=== PATIENT | male | born 1950 | race Caucasian/White ===

== ENCOUNTER 2023-02-08 07:33 | Inpatient (IN) ==
[~2023-02-08 07:33] MED LIST: Buffered Lidocaine 1% SYRIN 1 ml INTRADERM ONE; Lidocaine 2% PF 5 ML VIAL ONE; NS 0.9% 1000 ml BAG 1,000 ML IV SCH; Propofol 10 MG/ML 20 ML BTL ONE; Rocuronium 50 mg VIAL 10 mg/ml 5 ml VIAL (50 mg) ONE
[2023-02-08] MEDS ORDERED: Chlorhexidine MOUTHWASH 0.12% 15 ML UDC ONE (07:51)
[2023-02-08] MEDS ORDERED: Ondansetron 4 mg VIAL 2 MG/ML 2 ml VIAL ONE (08:11)
[2023-02-08] MEDS ORDERED: Dexamethasone IV 4 MG/ML VIAL 1 ml VIAL ONE (08:11)
[2023-02-08 08:12] LABS: Rapid COVID-19 Molecular Undetected (Undetected)
[2023-02-08] MEDS ORDERED: fentaNYL 100 mcg/2 ml 50 MCG/ML VIAL ONE (08:13)
[2023-02-08] MEDS ORDERED: fentaNYL 100 mcg/2 ml 50 MCG/ML VIAL IV PRN (08:13)
[2023-02-08] MEDS ORDERED: Morphine 4 MG/ML VIAL (1 ml) IV PRN (08:13)
[2023-02-08] MEDS ORDERED: Prochlorperazine 5 mg/ml 2 ml VIAL (10 mg) IV PRN ×2 (08:13→12:16)
[2023-02-08] MEDS ORDERED: Naloxone 0.4 mg VIAL 0.4 mg/ml 1 ml VIAL IV PRN (08:13)
[2023-02-08] MEDS ORDERED: ceFAZolin 2 GM in NS PREMIX 2 GM/100 ML BAG IVPB ONE (08:29)
[2023-02-08] MEDS ORDERED: Lidocaine 1% w EPI 1:100,000 MDV 20 ML VIAL ONE (10:19)
[2023-02-08] MEDS ORDERED: Thrombin 5,000 UNITS 1 APPLIC KIT - topical use - TOPICAL ONE (10:20)
[2023-02-08] MEDS ORDERED: ceFAZolin VIAL VIAL ONE (10:20)
[2023-02-08] MEDS ORDERED: Gelfoam Sponge SIZE 100 SPONGE ONE (10:20)
[2023-02-08] MEDS ORDERED: Midazolam 2 mg/2 ml VIAL 1 mg/ml 2 ml VIAL (2 mg) ONE (10:38)
[2023-02-08] MEDS ORDERED: Acetaminophen IV 1 GM/100ML 1,000 MG/100 ML BAG IV ONE (11:15)
[2023-02-08] MEDS ORDERED: Rocuronium 50 mg VIAL 10 mg/ml 5 ml VIAL (50 mg) ONE (11:24)
[2023-02-08] MEDS ORDERED: Calcium Carb (TUMS) 500 mg CHEW TAB PO PRN (12:09)
[2023-02-08] MEDS ORDERED: Senna TAB 8.6 mg TAB PO PRN (12:09)
[2023-02-08] MEDS ORDERED: Morphine 2 MG/ML SYRINGE IV PRN (12:09)
[2023-02-08] MEDS ORDERED: Lactated Ringers 1000 ml BAG 1,000 ML IV SCH (13:00)
[2023-02-08] MEDS ORDERED: Insulin GLARGINE 100 un/ml 10 ml VIAL SUBCUT SCH (21:00)
[2023-02-08] MEDS ORDERED: Benzocaine (plain) Lozenge 15 MG PO PRN (22:43)
[2023-02-08] MEDS: Timolol 0.5% OPTH.SOL BTL LEFT EYE SCH (22:45)
[2023-02-09] MEDS: Timolol 0.5% OPTH.SOL BTL LEFT EYE SCH ×2 (08:15→22:34)
[2023-02-09] MEDS: Latanoprost 0.005% 2.5 ml BTL LEFT EYE SCH (08:16)
[2023-02-09] MEDS: NF: Brinzolamid/Brimonidin OPH(NF) 1 DROP BTL LEFT EYE SCH (08:18)
[2023-02-09] MEDS ORDERED: Gadoteridol (CONTRAST) 279.3 MG/ML 10 ML IV ONE (20:31)
[2023-02-09] MEDS: HYDROcodone/ACETAMIN 5/325 mg TAB PO PRN (22:33)
[2023-02-10] MEDS ORDERED: Dexamethasone IV 4 MG/ML VIAL 1 ml VIAL IV SLOW PU ONE (07:12)
[2023-02-10] MEDS ORDERED: Propofol 10 MG/ML 20 ML BTL ONE (08:11)
[2023-02-10] MEDS ORDERED: Lidocaine 2% PF 5 ML VIAL ONE (08:11)
[2023-02-10] MEDS ORDERED: Rocuronium 50 mg VIAL 10 mg/ml 5 ml VIAL (50 mg) ONE ×2 (08:11→09:43)
[2023-02-10] MEDS ORDERED: Thrombin 5,000 UNITS 1 APPLIC KIT - topical use - TOPICAL ONE (08:31)
[2023-02-10] MEDS ORDERED: Lidocaine 1% w EPI 1:200,000 SDV 30 ML VIAL ONE (08:31)
[2023-02-10] MEDS ORDERED: Gelfoam Sponge SIZE 100 SPONGE ONE (08:32)
[2023-02-10] MEDS ORDERED: fentaNYL 250 mcg/5 ml 50 MCG/ML 5 ml VIAL (250 MCG) ONE (08:51)
[2023-02-10] MEDS ORDERED: Midazolam 10 mg/10 ml VIAL 1 mg/ml 10 ml VIAL (10 mg) ONE (08:51)
[2023-02-10] MEDS ORDERED: ceFAZolin VIAL VIAL ONE (09:03)
[2023-02-10] MEDS ORDERED: ceFAZolin 2 GM in NS PREMIX 2 GM/100 ML BAG IVPB ONE (09:12)
[2023-02-10] MEDS ORDERED: Dexamethasone IV 4 MG/ML VIAL 1 ml VIAL ONE (09:45)
[2023-02-10] MEDS ORDERED: Acetaminophen IV 1 GM/100ML 1,000 MG/100 ML BAG IV ONE (09:56)
[2023-02-10] MEDS ORDERED: Ondansetron 4 mg VIAL 2 MG/ML 2 ml VIAL ONE (09:57)
[2023-02-10] MEDS ORDERED: fentaNYL 100 mcg/2 ml 50 MCG/ML VIAL ONE (12:01)
[2023-02-10] MEDS ORDERED: Ondansetron 4 mg VIAL 2 MG/ML 2 ml VIAL IV PRN (12:45)
[2023-02-10] MEDS ORDERED: fentaNYL 100 mcg/2 ml 50 MCG/ML VIAL IV PRN (12:45)
[2023-02-10] MEDS ORDERED: Naloxone 0.4 mg VIAL 0.4 mg/ml 1 ml VIAL IV PRN (12:45)
[2023-02-10] MEDS: NF: Brinzolamid/Brimonidin OPH(NF) 1 DROP BTL LEFT EYE SCH (14:35)
[2023-02-10] MEDS: Timolol 0.5% OPTH.SOL BTL LEFT EYE SCH ×2 (16:02→20:19)
[2023-02-10] MEDS: Latanoprost 0.005% 2.5 ml BTL LEFT EYE SCH (16:08)
[2023-02-10] MEDS: HYDROcodone/ACETAMIN 5/325 mg TAB PO PRN ×2 (16:08→20:12)
[2023-02-10] MEDS: Dexamethasone IV 4 MG/ML VIAL 1 ml VIAL IV SLOW PU SCH ×2 (16:10→20:13)
[2023-02-11] MEDS: Dexamethasone IV 4 MG/ML VIAL 1 ml VIAL IV SLOW PU SCH ×4 (03:44→21:36)
[2023-02-11] MEDS: Timolol 0.5% OPTH.SOL BTL LEFT EYE SCH ×2 (08:15→21:45)
[2023-02-11] MEDS: NF: Brinzolamid/Brimonidin OPH(NF) 1 DROP BTL LEFT EYE SCH (08:16)
[2023-02-11] MEDS: Latanoprost 0.005% 2.5 ml BTL LEFT EYE SCH (08:18)
[2023-02-11] MEDS: HYDROcodone/ACETAMIN 5/325 mg TAB PO PRN ×2 (08:23→21:44)
[2023-02-11] MEDS: Polyethylene Glycol 3350 17 GM PACKET PO SCH (10:38)
[2023-02-12] MEDS: Dexamethasone IV 4 MG/ML VIAL 1 ml VIAL IV SLOW PU SCH ×4 (02:06→15:53)
[2023-02-12 06:04] LABS: ABS Lymphocytes 0.7 10^3/uL (1.0-4.8); ABS Monocytes 0.3 10^3/uL (0.0-1.1); ABS Neutrophils 11.7 10^3/uL (1.5-7.6); ABS Nucleated RBC 0.01 10^3/ul; Hematocrit 31.5 % (38-53); Hemoglobin 10.9 g/dL (13.2-16.3); Lymphocyte % 5.5 %; Mean Corpuscular Hgb Conc 34.7 g/dL (31-36); Mean Corpuscular Volume 89.4 fL (80-97); Mean Platelet Volume 6.9 fL (7.5-11.2); Nucleated Red Blood Cells % 0.1 /100 WBC (0.0-0.4); Platelet Count 312 10^3/uL (150-450); Red Blood Count 3.53 10^6/uL (4.06-5.63); White Blood Count 12.6 10^3/uL (3.6-10.2)
[2023-02-12 06:14] LABS: INR 1.12 (0.88-1.18)
[2023-02-12 06:23] LABS: Albumin 3.4 g/dL (3.2-5.2); Albumin/Globulin Ratio 1.1 (1-3); Calcium 8.1 mg/dL (8.6-10.3); Creatinine, Serum 0.86 mg/dL (0.67-1.17); Potassium 4.3 mmol/L (3.5-5.0); Total Bilirubin 0.4 mg/dL (0.2-1.0); Total Protein 6.4 g/dL (6.4-8.9); eGFR CKD-EPI 91.4 (>60)
[2023-02-12 06:33] LABS: PSA Screen Ultra Sensitive 4.049 ng/mL (0-4.000)
[2023-02-12 06:38] LABS: Carcinoembryonic Antigen 2.7 ng/mL (0.1-5.0)
[2023-02-12] MEDS: Polyethylene Glycol 3350 17 GM PACKET PO SCH (08:46)
[2023-02-12] MEDS: HYDROcodone/ACETAMIN 5/325 mg TAB PO PRN ×2 (08:56→15:53)
[2023-02-12] MEDS: Timolol 0.5% OPTH.SOL BTL LEFT EYE SCH ×2 (11:06→21:37)
[2023-02-12] MEDS: NF: Brinzolamid/Brimonidin OPH(NF) 1 DROP BTL LEFT EYE SCH (11:08)
[2023-02-12] MEDS: Latanoprost 0.005% 2.5 ml BTL LEFT EYE SCH (11:08)
[2023-02-12] MEDS: Enoxaparin 40 MG/0.4 ML SYR SUBCUT SCH (11:08)
[2023-02-12] MEDS: Insulin GLARGINE 100 un/ml 10 ml VIAL SUBCUT SCH (21:36)
[2023-02-13] MEDS: Enoxaparin 40 MG/0.4 ML SYR SUBCUT SCH (08:09)
[2023-02-13] MEDS: Polyethylene Glycol 3350 17 GM PACKET PO SCH (08:09)
[2023-02-13] MEDS: Latanoprost 0.005% 2.5 ml BTL LEFT EYE SCH (08:11)
[2023-02-13] MEDS: NF: Brinzolamid/Brimonidin OPH(NF) 1 DROP BTL LEFT EYE SCH (08:11)
[2023-02-13] MEDS: Timolol 0.5% OPTH.SOL BTL LEFT EYE SCH ×2 (08:11→20:14)
[2023-02-13] MEDS: Insulin GLARGINE 100 un/ml 10 ml VIAL SUBCUT SCH (20:14)
[2023-02-14 06:06] LABS: ABS Eosinophils 0.2 10^3/uL (0.0-0.5); ABS Lymphocytes 2.7 10^3/uL (1.0-4.8); ABS Monocytes 0.8 10^3/uL (0.0-1.1); ABS Nucleated RBC 0.01 10^3/ul; Eosinophil % 1.5 %; Hematocrit 33.3 % (38-53); Hemoglobin 11.7 g/dL (13.2-16.3); Lymphocyte % 22.9 %; Mean Corpuscular Hemoglobin 31.6 pg (27-33); Mean Corpuscular Hgb Conc 35.2 g/dL (31-36); Mean Corpuscular Volume 89.9 fL (80-97); Mean Platelet Volume 6.6 fL (7.5-11.2); Nucleated Red Blood Cells % 0.1 /100 WBC (0.0-0.4); Platelet Count 392 10^3/uL (150-450); Red Blood Count 3.71 10^6/uL (4.06-5.63); Red Cell Distribution Width 14.1 % (12-17); White Blood Count 11.6 10^3/uL (3.6-10.2)
[2023-02-14 06:24] LABS: Calcium 8.4 mg/dL (8.6-10.3); Creatinine, Serum 0.99 mg/dL (0.67-1.17); Potassium 4.4 mmol/L (3.5-5.0); eGFR CKD-EPI 80.4 (>60)
[2023-02-14] MEDS: Polyethylene Glycol 3350 17 GM PACKET PO SCH (10:28)
[2023-02-14] MEDS: Enoxaparin 40 MG/0.4 ML SYR SUBCUT SCH (10:29)
[2023-02-14] MEDS: HYDROcodone/ACETAMIN 5/325 mg TAB PO PRN ×3 (10:34→23:38)
[2023-02-14] MEDS: Timolol 0.5% OPTH.SOL BTL LEFT EYE SCH ×2 (10:35→20:48)
[2023-02-14] MEDS: Latanoprost 0.005% 2.5 ml BTL LEFT EYE SCH (10:36)
[2023-02-14] MEDS: NF: Brinzolamid/Brimonidin OPH(NF) 1 DROP BTL LEFT EYE SCH (12:35)
[2023-02-14] MEDS: Insulin GLARGINE 100 un/ml 10 ml VIAL SUBCUT SCH (20:48)
[2023-02-15] MEDS: Enoxaparin 40 MG/0.4 ML SYR SUBCUT SCH (08:42)
[2023-02-15] MEDS: Timolol 0.5% OPTH.SOL BTL LEFT EYE SCH ×2 (08:43→21:14)
[2023-02-15] MEDS: Latanoprost 0.005% 2.5 ml BTL LEFT EYE SCH (08:49)
[2023-02-15] MEDS: NF: Brinzolamid/Brimonidin OPH(NF) 1 DROP BTL LEFT EYE SCH (08:49)
[2023-02-15] MEDS: Polyethylene Glycol 3350 17 GM PACKET PO SCH (08:49)
[2023-02-15] MEDS: Insulin GLARGINE 100 un/ml 10 ml VIAL SUBCUT SCH (21:16)
[2023-02-16] MEDS: Polyethylene Glycol 3350 17 GM PACKET PO SCH (08:35)
[2023-02-16] MEDS: NF: Brinzolamid/Brimonidin OPH(NF) 1 DROP BTL LEFT EYE SCH (08:35)
[2023-02-16] MEDS: Timolol 0.5% OPTH.SOL BTL LEFT EYE SCH ×2 (08:39→21:16)
[2023-02-16] MEDS: Latanoprost 0.005% 2.5 ml BTL LEFT EYE SCH (08:39)
[2023-02-16] MEDS: Enoxaparin 40 MG/0.4 ML SYR SUBCUT SCH (08:40)
[2023-02-16 10:23] LABS: Uric Acid 4.2 mg/dL (4.4-7.6)
[2023-02-16] MEDS: Insulin GLARGINE 100 un/ml 10 ml VIAL SUBCUT SCH (21:15)
[2023-02-16 21:54] LABS: Hepatitis B Surface Antigen Nonreactive (Nonreactive)
[2023-02-17] MEDS: Polyethylene Glycol 3350 17 GM PACKET PO SCH (07:50)
[2023-02-17] MEDS ORDERED: HYDROcodone/ACETAMIN 5/325 mg TAB PO PRN (09:00)
[2023-02-17] MEDS: Latanoprost 0.005% 2.5 ml BTL LEFT EYE SCH (11:03)
[2023-02-17] MEDS: Timolol 0.5% OPTH.SOL BTL LEFT EYE SCH ×2 (11:05→20:17)
[2023-02-17] MEDS: Enoxaparin 40 MG/0.4 ML SYR SUBCUT SCH (11:06)
[2023-02-17] MEDS: NF: Brinzolamid/Brimonidin OPH(NF) 1 DROP BTL LEFT EYE SCH (11:08)
[2023-02-17] MEDS: Insulin GLARGINE 100 un/ml 10 ml VIAL SUBCUT SCH (20:13)
[2023-02-18] MEDS: NF: Brinzolamid/Brimonidin OPH(NF) 1 DROP BTL LEFT EYE SCH (08:38)
[2023-02-18] MEDS: Polyethylene Glycol 3350 17 GM PACKET PO SCH (08:44)
[2023-02-18] MEDS: Timolol 0.5% OPTH.SOL BTL LEFT EYE SCH ×2 (08:44→20:59)
[2023-02-18] MEDS: Latanoprost 0.005% 2.5 ml BTL LEFT EYE SCH (08:45)
[2023-02-18] MEDS: Enoxaparin 40 MG/0.4 ML SYR SUBCUT SCH (08:48)
[2023-02-18] MEDS: Insulin GLARGINE 100 un/ml 10 ml VIAL SUBCUT SCH (20:56)
[2023-02-19] MEDS: Timolol 0.5% OPTH.SOL BTL LEFT EYE SCH (08:14)
[2023-02-19] MEDS: NF: Brinzolamid/Brimonidin OPH(NF) 1 DROP BTL LEFT EYE SCH (08:15)
[2023-02-19] MEDS: Enoxaparin 40 MG/0.4 ML SYR SUBCUT SCH (08:15)
[2023-02-19] MEDS: Polyethylene Glycol 3350 17 GM PACKET PO SCH (08:16)
[2023-02-19] MEDS: Latanoprost 0.005% 2.5 ml BTL LEFT EYE SCH (08:18)
[2023-02-19 10:05] VITALS: BP 122/66
== END 2023-02-19 10:30 | DRG 519 ==
LOC: OR 07:33 → SSU 07:33
PROVIDERS: ADMIT Physician Assistant; ATTEND Neurological Surgery

== ENCOUNTER 2023-02-19 10:50 | Inpatient (IN) ==
[2023-02-19] MEDS ORDERED: Magnesium Hydroxide LIQ 30 ML UDC PO PRN (11:15)
[2023-02-19] MEDS ORDERED: Senna TAB 8.6 mg TAB PO PRN (11:15)
[2023-02-19] MEDS ORDERED: Dextrose 50% Syringe 50 ml 25 GM/50 ML SYRINGE IV PUSH PRN (11:33)
[2023-02-19] MEDS ORDERED: Polyethylene Glycol 3350 17 GM PACKET PO PRN (11:39)
[2023-02-19] MEDS ORDERED: HYDROcodone/ACETAMIN 5/325 mg TAB PO PRN (11:47)
[2023-02-19] MEDS: Enoxaparin 40 MG/0.4 ML SYR SUBCUT SCH (12:11)
[2023-02-19] MEDS: Timolol 0.5% OPTH.SOL BTL LEFT EYE SCH (20:53)
[2023-02-19] MEDS: PTO: Brinzolamid/Brimonidin OPH(NF) 1 DROP BTL LEFT EYE SCH (22:57)
[2023-02-19] MEDS: Latanoprost 0.005% 2.5 ml BTL LEFT EYE SCH (22:58)
[2023-02-20 07:07] LABS: ABS Eosinophils 0.3 10^3/uL (0.0-0.5); ABS Lymphocytes 1.7 10^3/uL (1.0-4.8); ABS Monocytes 0.6 10^3/uL (0.0-1.1); ABS Neutrophils 5.6 10^3/uL (1.5-7.6); Eosinophil % 3.3 %; Hematocrit 27.9 % (38-53); Lymphocyte % 20.7 %; Mean Corpuscular Hemoglobin 32.4 pg (27-33); Mean Corpuscular Hgb Conc 35.8 g/dL (31-36); Mean Corpuscular Volume 90.7 fL (80-97); Mean Platelet Volume 6.3 fL (7.5-11.2); Nucleated Red Blood Cells % 0.1 /100 WBC (0.0-0.4); Platelet Count 328 10^3/uL (150-450); Red Blood Count 3.08 10^6/uL (4.06-5.63); Red Cell Distribution Width 13.9 % (12-17); White Blood Count 8.1 10^3/uL (3.6-10.2)
[2023-02-20 07:27] LABS: Albumin/Globulin Ratio 1.2 (1-3); Calcium 8.3 mg/dL (8.6-10.3); Creatinine, Serum 0.96 mg/dL (0.67-1.17); Globulin 2.6 g/dL (2-4); Potassium 4.1 mmol/L (3.5-5.0); Total Bilirubin 0.4 mg/dL (0.2-1.0); Total Protein 5.6 g/dL (6.4-8.9); eGFR CKD-EPI 83.5 (>60)
[2023-02-20] MEDS: Latanoprost 0.005% 2.5 ml BTL LEFT EYE SCH ×2 (09:02→20:05)
[2023-02-20] MEDS: Timolol 0.5% OPTH.SOL BTL LEFT EYE SCH ×2 (09:02→20:05)
[2023-02-20] MEDS: Enoxaparin 40 MG/0.4 ML SYR SUBCUT SCH (13:04)
[2023-02-20] MEDS: PTO: Brinzolamid/Brimonidin OPH(NF) 1 DROP BTL LEFT EYE SCH (20:05)
[2023-02-21] MEDS: Timolol 0.5% OPTH.SOL BTL LEFT EYE SCH ×2 (08:01→20:31)
[2023-02-21] MEDS: Latanoprost 0.005% 2.5 ml BTL LEFT EYE SCH ×2 (08:02→20:30)
[2023-02-21] MEDS: Enoxaparin 40 MG/0.4 ML SYR SUBCUT SCH (11:46)
[2023-02-21] MEDS: PTO: Brinzolamid/Brimonidin OPH(NF) 1 DROP BTL LEFT EYE SCH (20:34)
[2023-02-22] MEDS: Latanoprost 0.005% 2.5 ml BTL LEFT EYE SCH ×2 (08:09→21:03)
[2023-02-22] MEDS: Timolol 0.5% OPTH.SOL BTL LEFT EYE SCH ×2 (08:14→21:03)
[2023-02-22] MEDS: Enoxaparin 40 MG/0.4 ML SYR SUBCUT SCH (14:14)
[2023-02-22] MEDS: PTO: Brinzolamid/Brimonidin OPH(NF) 1 DROP BTL LEFT EYE SCH (21:03)
[2023-02-23] MEDS: Timolol 0.5% OPTH.SOL BTL LEFT EYE SCH ×2 (07:34→20:42)
[2023-02-23] MEDS: Latanoprost 0.005% 2.5 ml BTL LEFT EYE SCH ×2 (07:34→20:43)
[2023-02-23] MEDS: Enoxaparin 40 MG/0.4 ML SYR SUBCUT SCH (11:33)
[2023-02-23] MEDS: PTO: Brinzolamid/Brimonidin OPH(NF) 1 DROP BTL LEFT EYE SCH (20:43)
[2023-02-24] MEDS: Latanoprost 0.005% 2.5 ml BTL LEFT EYE SCH ×2 (07:26→19:57)
[2023-02-24] MEDS: Timolol 0.5% OPTH.SOL BTL LEFT EYE SCH ×2 (07:26→19:57)
[2023-02-24] MEDS: Enoxaparin 40 MG/0.4 ML SYR SUBCUT SCH (12:34)
[2023-02-24] MEDS: PTO: Brinzolamid/Brimonidin OPH(NF) 1 DROP BTL LEFT EYE SCH (19:56)
[2023-02-25] MEDS: Latanoprost 0.005% 2.5 ml BTL LEFT EYE SCH ×2 (09:10→19:51)
[2023-02-25] MEDS: Timolol 0.5% OPTH.SOL BTL LEFT EYE SCH ×2 (09:11→19:50)
[2023-02-25] MEDS: Enoxaparin 40 MG/0.4 ML SYR SUBCUT SCH (12:34)
[2023-02-25] MEDS: PTO: Brinzolamid/Brimonidin OPH(NF) 1 DROP BTL LEFT EYE SCH (19:51)
[2023-02-26] MEDS: Timolol 0.5% OPTH.SOL BTL LEFT EYE SCH ×2 (09:27→20:35)
[2023-02-26] MEDS: Latanoprost 0.005% 2.5 ml BTL LEFT EYE SCH ×2 (09:28→20:35)
[2023-02-26] MEDS: Enoxaparin 40 MG/0.4 ML SYR SUBCUT SCH (12:33)
[2023-02-26] MEDS: PTO: Brinzolamid/Brimonidin OPH(NF) 1 DROP BTL LEFT EYE SCH (20:35)
[2023-02-27 06:24] LABS: ABS Basophils 0.1 10^3/uL (0.0-0.1); ABS Eosinophils 0.2 10^3/uL (0.0-0.5); ABS Lymphocytes 1.5 10^3/uL (1.0-4.8); ABS Monocytes 0.4 10^3/uL (0.0-1.1); ABS Neutrophils 3.7 10^3/uL (1.5-7.6); ABS Nucleated RBC 0.01 10^3/ul; Eosinophil % 4.1 %; Hematocrit 29.5 % (38-53); Hemoglobin 10.3 g/dL (13.2-16.3); Lymphocyte % 25.8 %; Mean Corpuscular Hemoglobin 31.1 pg (27-33); Mean Corpuscular Volume 88.8 fL (80-97); Mean Platelet Volume 6.2 fL (7.5-11.2); Nucleated Red Blood Cells % 0.1 /100 WBC (0.0-0.4); Platelet Count 293 10^3/uL (150-450); Red Blood Count 3.33 10^6/uL (4.06-5.63); Red Cell Distribution Width 14.2 % (12-17); White Blood Count 5.9 10^3/uL (3.6-10.2)
[2023-02-27 07:01] LABS: Albumin 3.1 g/dL (3.2-5.2); Albumin/Globulin Ratio 1.2 (1-3); Calcium 8.3 mg/dL (8.6-10.3); Creatinine, Serum 0.99 mg/dL (0.67-1.17); Globulin 2.5 g/dL (2-4); Potassium 3.9 mmol/L (3.5-5.0); Total Bilirubin 0.3 mg/dL (0.2-1.0); Total Protein 5.6 g/dL (6.4-8.9); eGFR CKD-EPI 80.4 (>60)
[2023-02-27] MEDS: Latanoprost 0.005% 2.5 ml BTL LEFT EYE SCH ×2 (07:24→20:51)
[2023-02-27] MEDS: Timolol 0.5% OPTH.SOL BTL LEFT EYE SCH ×2 (07:24→20:51)
[2023-02-27] MEDS: Enoxaparin 40 MG/0.4 ML SYR SUBCUT SCH (12:02)
[2023-02-27] MEDS: PTO: Brinzolamid/Brimonidin OPH(NF) 1 DROP BTL LEFT EYE SCH (20:51)
[2023-02-28] MEDS: Latanoprost 0.005% 2.5 ml BTL LEFT EYE SCH ×2 (13:12→21:10)
[2023-02-28] MEDS: Timolol 0.5% OPTH.SOL BTL LEFT EYE SCH ×2 (13:12→21:12)
[2023-02-28] MEDS: Enoxaparin 40 MG/0.4 ML SYR SUBCUT SCH (14:42)
[2023-02-28] MEDS: PTO: Brinzolamid/Brimonidin OPH(NF) 1 DROP BTL LEFT EYE SCH (21:08)
[2023-03-01] MEDS: Timolol 0.5% OPTH.SOL BTL LEFT EYE SCH ×2 (07:46→20:28)
[2023-03-01] MEDS: Latanoprost 0.005% 2.5 ml BTL LEFT EYE SCH ×2 (07:46→20:28)
[2023-03-01] MEDS: Enoxaparin 40 MG/0.4 ML SYR SUBCUT SCH (12:17)
[2023-03-01] MEDS: PTO: Brinzolamid/Brimonidin OPH(NF) 1 DROP BTL LEFT EYE SCH (20:29)
[2023-03-01] MEDS ORDERED: HYDROcodone/ACETAMIN 5/325 mg TAB PO PRN (21:11)
[2023-03-02] MEDS: Timolol 0.5% OPTH.SOL BTL LEFT EYE SCH ×2 (09:44→21:13)
[2023-03-02] MEDS: Latanoprost 0.005% 2.5 ml BTL LEFT EYE SCH ×2 (09:44→21:16)
[2023-03-02] MEDS: Enoxaparin 40 MG/0.4 ML SYR SUBCUT SCH (12:08)
[2023-03-02] MEDS: PTO: Brinzolamid/Brimonidin OPH(NF) 1 DROP BTL LEFT EYE SCH (21:11)
[2023-03-03 06:16] VITALS: BP 152/79
[2023-03-03] MEDS: Timolol 0.5% OPTH.SOL BTL LEFT EYE SCH (07:31)
[2023-03-03] MEDS: Latanoprost 0.005% 2.5 ml BTL LEFT EYE SCH (07:31)
== END 2023-03-03 11:30 | disposition home or self-care (01) | DRG 841 ==
LOC: PMRU 10:50
PROVIDERS: ADMIT Physical Medicine & Rehabilitation; ATTEND Physical Medicine & Rehabilitation

== ENCOUNTER 2023-09-13 13:44 | Inpatient (IN) ==
[2023-09-13 15:24] LABS: Hemoglobin 11.4 g/dL (13.2-16.3); Mean Corpuscular Hemoglobin 32.7 pg (27-33); Mean Corpuscular Hgb Conc 34.6 g/dL (31-36); Mean Corpuscular Volume 94.6 fL (80-97); Platelet Count 283 10^3/uL (150-450); Red Blood Count 3.48 10^6/uL (4.06-5.63); Red Cell Distribution Width 15.6 % (12-17); White Blood Count 8.6 10^3/uL (3.6-10.2)
[2023-09-13 15:53] LABS: Calcium 8.5 mg/dL (8.6-10.3); Creatinine, Serum 1.11 mg/dL (0.67-1.17); Potassium 4.7 mmol/L (3.5-5.0); eGFR CKD-EPI 69.7 (>60)
[2023-09-13] MEDS ORDERED: Al Hydrox/Mg Hydrox/Simet LIQ 30 ML UDC PO PRN (19:45)
[2023-09-13] MEDS ORDERED: Dextrose 50% Syringe 50 ml 25 GM/50 ML SYRINGE IV PUSH PRN (20:28)
[2023-09-13] MEDS: Enoxaparin 40 MG/0.4 ML SYR SUBCUT SCH (20:32)
[2023-09-13] MEDS: Brinzolamid/Brimonidin OPH(NF) 1 DROP BTL LEFT EYE SCH (22:20)
[2023-09-13] MEDS: Latanoprost 0.005% 2.5 ml BTL LEFT EYE SCH (22:43)
[2023-09-13] MEDS: Timolol 0.5% OPTH.SOL BTL LEFT EYE SCH (22:43)
[2023-09-14 07:24] LABS: ABS Basophils 0.1 10^3/uL (0.0-0.1); ABS Eosinophils 0.3 10^3/uL (0.0-0.5); ABS Monocytes 0.5 10^3/uL (0.0-1.1); ABS Neutrophils 5.4 10^3/uL (1.5-7.6); Eosinophil % 3.6 %; Hematocrit 30.3 % (38-53); Hemoglobin 10.5 g/dL (13.2-16.3); Lymphocyte % 13.7 %; Mean Corpuscular Hemoglobin 32.9 pg (27-33); Mean Corpuscular Hgb Conc 34.8 g/dL (31-36); Mean Corpuscular Volume 94.3 fL (80-97); Mean Platelet Volume 6.2 fL (7.5-11.2); Platelet Count 243 10^3/uL (150-450); Red Blood Count 3.21 10^6/uL (4.06-5.63); Red Cell Distribution Width 15.8 % (12-17); White Blood Count 7.1 10^3/uL (3.6-10.2)
[2023-09-14 07:40] LABS: Calcium 8.4 mg/dL (8.6-10.3); Creatinine, Serum 0.94 mg/dL (0.67-1.17); Potassium 3.8 mmol/L (3.5-5.0); eGFR CKD-EPI 85.1 (>60)
[2023-09-14] MEDS: Albuterol 2.5mg/3 ml (0.083%) NEB.SOLN INH SCH (07:57)
[2023-09-14] MEDS: BRIMONIDINE LEFT EYE SCH (08:25)
[2023-09-14] MEDS: BRINZOLAMIDE LEFT EYE SCH (08:25)
[2023-09-15 05:39] LABS: ABS Basophils 0.1 10^3/uL (0.0-0.1); ABS Eosinophils 0.3 10^3/uL (0.0-0.5); ABS Lymphocytes 0.9 10^3/uL (1.0-4.8); ABS Monocytes 0.5 10^3/uL (0.0-1.1); ABS Neutrophils 6.3 10^3/uL (1.5-7.6); Eosinophil % 3.4 %; Hematocrit 30.2 % (38-53); Hemoglobin 10.4 g/dL (13.2-16.3); Lymphocyte % 11.6 %; Mean Corpuscular Hemoglobin 32.4 pg (27-33); Mean Corpuscular Hgb Conc 34.4 g/dL (31-36); Mean Corpuscular Volume 94.3 fL (80-97); Nucleated Red Blood Cells % 0.1 %/100WBC (0.0-0.8); Platelet Count 227 10^3/uL (150-450); Red Cell Distribution Width 15.4 % (12-17); White Blood Count 8.1 10^3/uL (3.6-10.2)
[2023-09-15 06:20] LABS: Calcium 7.9 mg/dL (8.6-10.3); Creatinine, Serum 0.85 mg/dL (0.67-1.17); Potassium 3.8 mmol/L (3.5-5.0); eGFR CKD-EPI 91.2 (>60)
[2023-09-15] MEDS ORDERED: Rocuronium 50 mg VIAL 10 mg/ml 5 ml VIAL (50 mg) ONE (09:46)
[2023-09-15] MEDS ORDERED: ceFAZolin 2 GM in NS PREMIX 2 GM/100 ML BAG IVPB ONE (11:49)
[2023-09-15] MEDS ORDERED: Gelfoam Sponge SIZE 100 SPONGE ONE (11:59)
[2023-09-15] MEDS ORDERED: ceFAZolin VIAL VIAL ONE (11:59)
[2023-09-15] MEDS ORDERED: Thrombin 5,000 UNITS(BOVINE) for Ultrasound Guided Pseudoaneursym ONE (11:59)
[2023-09-15] MEDS ORDERED: Lidocaine 1% w EPI 1:200,000 SDV 30 ML VIAL ONE (11:59)
[2023-09-15] MEDS ORDERED: fentaNYL 250 mcg/5 ml 50 MCG/ML 5 ml VIAL (250 MCG) ONE (12:10)
[2023-09-15] MEDS ORDERED: Phenylephrine IV 10 MG/ML 1 ml VIAL ONE (13:01)
[2023-09-15] MEDS ORDERED: Ondansetron 4 mg VIAL 2 MG/ML 2 ml VIAL IV PRN (14:39)
[2023-09-15] MEDS ORDERED: Metoclopramide 5 MG/ML VIAL (10 mg) IV PRN (14:39)
[2023-09-15] MEDS ORDERED: fentaNYL 100 mcg/2 ml 50 MCG/ML VIAL IV PRN (14:39)
[2023-09-15] MEDS ORDERED: Naloxone 0.4 mg VIAL 0.4 mg/ml 1 ml VIAL IV PRN ×2 (14:39)
[2023-09-15] MEDS ORDERED: Morphine 2 MG/ML SYRINGE IV PRN (15:48)
[2023-09-15] MEDS: Buffered Lidocaine 1% SYRIN 1 ml INTRADERM ONE (15:50)
[2023-09-15] MEDS: Scopolamine 1 mg/72hr PATCH TRANSDERM ONE (15:50)
[2023-09-15] MEDS: NS 0.9% 1000 ml BAG 1,000 ML IV SCH (16:17)
[2023-09-15] MEDS: Lactated Ringers 1000 ml BAG 1,000 ML IV SCH (16:18)
[2023-09-16 06:14] LABS: ABS Lymphocytes 0.7 10^3/uL (1.0-4.8); ABS Monocytes 0.3 10^3/uL (0.0-1.1); ABS Neutrophils 8.2 10^3/uL (1.5-7.6); Hematocrit 28.4 % (38-53); Hemoglobin 10.1 g/dL (13.2-16.3); Lymphocyte % 7.6 %; Mean Corpuscular Hemoglobin 33.7 pg (27-33); Mean Corpuscular Hgb Conc 35.7 g/dL (31-36); Mean Corpuscular Volume 94.3 fL (80-97); Mean Platelet Volume 6.5 fL (7.5-11.2); Platelet Count 203 10^3/uL (150-450); Red Blood Count 3.01 10^6/uL (4.06-5.63); Red Cell Distribution Width 15.8 % (12-17); White Blood Count 9.2 10^3/uL (3.6-10.2)
[2023-09-16 06:34] LABS: Calcium 8.1 mg/dL (8.6-10.3); Creatinine, Serum 0.81 mg/dL (0.67-1.17); Potassium 4.4 mmol/L (3.5-5.0); eGFR CKD-EPI 92.5 (>60)
[2023-09-16] MEDS ORDERED: Senna TAB 8.6 mg TAB PO PRN (11:03)
[2023-09-16] MEDS ORDERED: Magnesium Hydroxide LIQ 30 ML UDC PO PRN (11:03)
[2023-09-16] MEDS: Magnesium Hydroxide LIQ 30 ML UDC PO SCH (12:14)
[2023-09-16] MEDS: Polyethylene Glycol 3350 17 GM PACKET PO SCH (12:14)
[2023-09-16] MEDS: Enoxaparin 40 MG/0.4 ML SYR SUBCUT SCH (16:27)
[2023-09-16] MEDS ORDERED: Insulin ISOPH/REG 70/30 SUBCUT SCH (18:00)
[2023-09-17 08:20] LABS: Calcium 8.2 mg/dL (8.6-10.3); Creatinine, Serum 0.84 mg/dL (0.67-1.17); Potassium 4.3 mmol/L (3.5-5.0); eGFR CKD-EPI 91.5 (>60)
[2023-09-17 08:28] LABS: Hematocrit 28.2 % (38-53); Hemoglobin 9.9 g/dL (13.2-16.3); Mean Corpuscular Hemoglobin 33.3 pg (27-33); Mean Corpuscular Hgb Conc 35.1 g/dL (31-36); Mean Platelet Volume 6.4 fL (7.5-11.2); Platelet Count 208 10^3/uL (150-450); Red Blood Count 2.97 10^6/uL (4.06-5.63); Red Cell Distribution Width 15.6 % (12-17); White Blood Count 9.1 10^3/uL (3.6-10.2)
[2023-09-17 08:57] LABS: ABS Eosinophils 0.1 10^3/uL (0.0-0.5); ABS Lymphocytes 0.9 10^3/uL (1.0-4.8); ABS Monocytes 0.4 10^3/uL (0.0-1.1); ABS Neutrophils 7.6 10^3/uL (1.5-7.6); ABS Nucleated RBC 0.01 10^3/ul; Eosinophil % 1.2 %; Nucleated Red Blood Cells % 0.1 %/100WBC (0.0-0.8)
[2023-09-19] MEDS: Albuterol 2.5mg/3 ml (0.083%) NEB.SOLN INH PRN (09:34)
[2023-09-21 10:08] LABS: Rapid COVID-19 Molecular Undetected (Undetected)
[2023-09-21 10:17] VITALS: BP 104/60
== END 2023-09-21 11:35 | disposition swing bed (61) | DRG 519 ==
LOC: ED 13:44 → EDHOLD 19:45 → SUATTDRO 19:45 → EDHOLD 09-14 03:22 → MEDTELE 09-14 03:55 → MED 09-14 22:00 → SSU 09-15 11:32 → MED 09-15 16:27 → SSU 09-15 17:10
PROVIDERS: ADMIT Internal Medicine; ATTEND Internal Medicine

== ENCOUNTER 2023-11-09 11:14 | Inpatient (IN) ==
[2023-11-09 13:16] LABS: ABS Lymphocytes 0.3 10^3/uL (1.0-4.8); ABS Monocytes 0.2 10^3/uL (0.0-1.1); ABS Neutrophils 17.9 10^3/uL (1.5-7.6); Eosinophil % 0.2 %; Hematocrit 32.8 % (38-53); Lymphocyte % 1.4 %; Mean Corpuscular Hemoglobin 31.4 pg (27-33); Mean Corpuscular Hgb Conc 33.6 g/dL (31-36); Mean Corpuscular Volume 93.5 fL (80-97); Platelet Count 431 10^3/uL (150-450); Red Blood Count 3.51 10^6/uL (4.06-5.63); Red Cell Distribution Width 14.5 % (12-17); White Blood Count 18.4 10^3/uL (3.6-10.2)
[2023-11-09 13:50] LABS: Albumin 3.3 g/dL (3.2-5.2); Albumin/Globulin Ratio 1.2 (1-3); C Reactive Protein 365.31 mg/L (<8.01); Calcium 8.7 mg/dL (8.6-10.3); Creatinine, Serum 0.83 mg/dL (0.67-1.17); Globulin 2.7 g/dL (2-4); Magnesium 1.8 mg/dL (1.9-2.7); Potassium 4.1 mmol/L (3.5-5.0); Total Bilirubin 0.6 mg/dL (0.2-1.0); eGFR CKD-EPI 91.8 (>60)
[2023-11-09] MEDS: cefTRIAXone 1 gm/50 mL D5W 1 GM/50 ML BAG IV ONE (14:11)
[2023-11-09] MEDS: Vancomycin 1,500 MG in NS 0.9% 250 ml 250 ML IVPB ONE (14:16)
[2023-11-09] MEDS: Lactated Ringers 1000 ml BAG 1,000 ML IV SCH (14:17)
[2023-11-09 14:36] LABS: High Sensitivity Troponin 1 Hr 17 pg/mL (<20)
[2023-11-09] MEDS: Iodixanol (CONTRAST) 320 MG/ML 100 ML SDV IV ONE (16:12)
[2023-11-09] MEDS: Albuterol 2.5mg/3 ml (0.083%) NEB.SOLN INH ONE (16:31)
[2023-11-09] MEDS ORDERED: Albuterol HFA INHALER 8 gm MDI INH PRN (17:32)
[2023-11-09] MEDS: methylPREDNISolone SOD SUCC 125 mg 2 ML VIAL IV ONE (20:19)
[2023-11-09] MEDS: Budesonide/Formote 160/4.5(NF) MDI INH SCH (20:52)
[2023-11-09] MEDS ORDERED: Dextrose 50% Syringe 50 ml 25 GM/50 ML SYRINGE IV PUSH PRN (22:27)
[2023-11-09] MEDS: NF: Brinzolamid/Brimonidin OPH(NF) 1 DROP BTL LEFT EYE SCH (22:41)
[2023-11-09] MEDS: Latanoprost 0.005% 2.5 ml BTL LEFT EYE SCH (22:52)
[2023-11-09] MEDS: Timolol 0.5% OPTH.SOL BTL LEFT EYE SCH (22:53)
[2023-11-10 06:01] LABS: ABS Lymphocytes 0.4 10^3/uL (1.0-4.8); ABS Monocytes 0.1 10^3/uL (0.0-1.1); ABS Neutrophils 11.6 10^3/uL (1.5-7.6); Hematocrit 29.5 % (38-53); Lymphocyte % 3.4 %; Mean Corpuscular Hemoglobin 31.5 pg (27-33); Mean Corpuscular Hgb Conc 34.1 g/dL (31-36); Mean Corpuscular Volume 92.5 fL (80-97); Mean Platelet Volume 6.2 fL (7.5-11.2); Platelet Count 403 10^3/uL (150-450); Red Blood Count 3.19 10^6/uL (4.06-5.63); Red Cell Distribution Width 14.3 % (12-17); White Blood Count 12.1 10^3/uL (3.6-10.2)
[2023-11-10 06:48] LABS: Albumin/Globulin Ratio 1.2 (1-3); Calcium 8.6 mg/dL (8.6-10.3); Creatinine, Serum 0.81 mg/dL (0.67-1.17); Globulin 2.5 g/dL (2-4); Magnesium 1.9 mg/dL (1.9-2.7); Total Bilirubin 0.3 mg/dL (0.2-1.0); Total Protein 5.5 g/dL (6.4-8.9); eGFR CKD-EPI 92.5 (>60)
[2023-11-10] MEDS: Mometasone/Formoter 200/5 MDI INH SCH (07:23)
[2023-11-10] MEDS: cefTRIAXone 1 gm/50 mL D5W 1 GM/50 ML BAG IV SCH (14:51)
[2023-11-10] MEDS: Heparin 5000 UNITS/ML 1 mL VIAL SUBCUT SCH (14:57)
[2023-11-11 00:16] LABS: Glucose Confirmatory 428 mg/dL (70-100)
[2023-11-11] MEDS ORDERED: Magnesium Hydroxide LIQ 30 ML UDC PO PRN (08:45)
[2023-11-11] MEDS ORDERED: Senna TAB 8.6 mg TAB PO PRN (08:45)
[2023-11-11] MEDS ORDERED: Polyethylene Glycol 3350 17 GM PACKET PO PRN (08:45)
[2023-11-11] MEDS: Furosemide 40 mg/4 ml IV VIAL IV ONE (14:22)
[2023-11-11] MEDS: Insulin GLARGINE 100 un/ml 10 ml VIAL SUBCUT ONE (23:12)
[2023-11-12] MEDS: Insulin GLARGINE 100 un/ml 10 ml VIAL SUBCUT SCH (20:10)
[2023-11-13 06:15] LABS: Hematocrit 29.4 % (38-53); Hemoglobin 10.3 g/dL (13.2-16.3); Mean Corpuscular Hemoglobin 32.1 pg (27-33); Mean Corpuscular Volume 91.8 fL (80-97); Mean Platelet Volume 6.1 fL (7.5-11.2); Platelet Count 469 10^3/uL (150-450); Red Cell Distribution Width 14.2 % (12-17)
[2023-11-13 06:34] LABS: Calcium 8.2 mg/dL (8.6-10.3); Creatinine, Serum 0.84 mg/dL (0.67-1.17); eGFR CKD-EPI 91.5 (>60)
[2023-11-13 06:54] LABS: ABS Lymphocytes 0.7 10^3/uL (1.0-4.8); ABS Monocytes 0.4 10^3/uL (0.0-1.1); ABS Neutrophils 8.8 10^3/uL (1.5-7.6); ABS Nucleated RBC 0.01 10^3/ul; Eosinophil % 0.3 %; Lymphocyte % 7.2 %; Nucleated Red Blood Cells % 0.1 %/100WBC (0.0-0.8)
[2023-11-13 06:55] LABS: RBC Morphology Normal (Normal)
[2023-11-15 13:17] VITALS: BP 114/62
[2023-11-15 15:20] LABS: Rapid COVID-19 Molecular Undetected (Undetected)
== END 2023-11-15 16:09 | disposition swing bed (61) | DRG 872 ==
LOC: ED 11:14 → EDHOLD 11:14 → MED 19:49 → SUATTDRO 11-11 08:49
PROVIDERS: ADMIT Hospitalist; ATTEND Internal Medicine